=== PATIENT | male | born 1990 | race Caucasian/White ===

== ENCOUNTER 2020-06-18 11:28 | Emergency (ER) | payer OTHER ==
[~2020-06-18] VITALS: Ht 177.8 cm; Wt 145.1 kg
[2020-06-18 11:45] VITALS: BP 142/56
--- NOTE | 2020-06-18 12:09 | NUR ---
PT AMBULATED TO BED 09
--- NOTE | 2020-06-18 12:25 | NUR ---
29/M c/o lower back pain after doing heavy exercise on Tuesday. Pt states the pain is worse with lying down. Pt found standing in room for comfort. Pt describes pain aching, 8/10 to lower back area.
[2020-06-18] MEDS ORDERED: KETOROLAC 60 MG/2 ML VIAL IM ONE (12:30)
--- NOTE | 2020-06-18 13:27 | NUR ---
PT SITTING IN BED WITH EVEN AND UNLABORED RESPIRATIONS. PT STATES HE IS STILL IN PAIN BUT IT IS BETTER. PT DOESNT WANT PAIN MEDS AT THIS TIME. WILL CONTINUE TO MONITOR
[2020-06-18] MEDS ORDERED: ACET-8386 PO (14:23)
[2020-06-18] MEDS ORDERED: IBUP-2213 PO (14:23)
[2020-06-18 14:40] VITALS: BP 142/56
--- NOTE | 2020-06-18 14:42 | NUR ---
Patient discharged with v/s stable. Written and verbal after care instructions given and explained. Patient alert, oriented and verbalized understanding of instructions. Ambulatory with steady gait. All questions addressed prior to discharge. ID band removed. Patient advised to follow up with PMD. Rx of ibuprofen and hydrocodone/acetaminophen 5/325mg given. Patient educated on indication of medication including possible reaction and side effects. Opportunity to ask questions provided and answered.
== END 2020-06-18 14:42 | disposition home or self-care (01) ==
LOC: MED 11:28
DX: S22.080A Wedge compression fracture of T11-T12 vertebra, initial encounter for closed fracture (principal); Z79.899 Other long term (current) drug therapy; X50.0XXA Overexertion from strenuous movement or load, initial encounter; Y93.89 Activity, other specified; Y92.89 Other specified places as the place of occurrence of the external cause; Y99.8 Other external cause status
CPT/HCPCS: 72080; 96372; 99283; J1885